=== PATIENT | female | born 1990 | race Caucasian/White ===

== ENCOUNTER 2019-01-18 16:32 | Emergency (ER) | payer MEDICAID ==
--- NOTE | 2019-01-18 18:41 | ED Physician Documentation ---
PD HPI HEENT - Stated complaint Stated Complaint: NECK PX/NO INJ - Chief complaint Chief Complaint: Back Pain - History obtained from History obtained from: Patient - History of Present Illness Timing - onset: How many weeks ago (1) Timing - duration: Weeks (1) Timing - details: Gradual onset, Still present Location: Right ear, Other (noting pain on lateral neck right side for a week. Now noting some pain right ear.) Associated symptoms: No: Fever, Congestion, Cough Similar symptoms before: Has not had sx before Review of Systems Constitutional: denies: Fever, Chills, Myalgias Ears: reports: Ear pain (just for a day) Nose: reports: Congestion. denies: Rhinorrhea / runny nose Throat: denies: Sore throat Respiratory: reports: Cough GI: denies: Nausea, Vomiting Skin: denies: Rash, Lesions PD PAST MEDICAL HISTORY - Past Medical History Past Medical History: No - Present Medications Home Medications: Ambulatory Orders Medication Instructions Recorded Confirmed Cetirizine [ZyrTEC] 10 mg PO DAILY #15 tablet 01/18/19 cephALEXin [Cephalexin] 500 mg PO TID #21 tablet 01/18/19 dexAMETHasone [Decadron] 4 mg PO DAILY #5 tablet 01/18/19 - Allergies Allergies/Adverse Reactions: Allergies Allergy/AdvReac Type Severity Reaction Status Date / Time No Known Drug Allergies Allergy Verified 01/18/19 16:42 - Social History Does the pt smoke?: No Smoking Status: Never smoker PD ED PE NORMAL - Vitals Vital signs reviewed: Yes - General General: Alert and oriented X 3, No acute distress, Well developed/nourished - HEENT HEENT: Pharynx benign. No: Ears normal (left is good. right ear showing redness and fluid behing TM. Canal is okay.) - Neck Neck: Supple, no meningeal sign, Other (right lateral cervical 1 cm adenopathy, mod tender.) - Cardiac Cardiac: RRR, No murmur - Respiratory Respiratory: Clear bilaterally - Derm Derm: Normal color, Warm and dry, No rash Results - Vitals Vitals: Oxygen O2 Source Room air PD MEDICAL DECISION MAKING - ED course Complexity details: considered differential, d/w patient Departure - Departure Disposition: 01 Home, Self Care Clinical Impression: Cervical adenopathy Otitis media Qualifiers: Otitis media type: suppurative Chronicity: acute Laterality: right Recurrence: non-recurrent Spontaneous tympanic membrane rupture: without spontaneous rupture Qualified Code(s): H66.001 - Acute suppurative otitis media without spontaneous rupture of ear drum, right ear Condition: Stable Record reviewed to determine appropriate education?: Yes Instructions: ED Otitis Media Acute Adult Follow-Up: AARON SPENCER MD [Primary Care Provider] - Prescriptions: cephALEXin [Cephalexin] 500 mg PO TID #21 tablet Cetirizine [ZyrTEC] 10 mg PO DAILY #15 tablet dexAMETHasone [Decadron] 4 mg PO DAILY #5 tablet Comments: It does look like an ear infection. The neck pain is appears to be from some small lymph nodes related to the infection. He is the cephalexin antibiotic as directed for a week. Decadron steroid for inflammation daily as directed. Cetirizine antihistamine daily for the next week or 2 to decrease fluid in the middle ear and sinus. Add Tylenol if needed for pains or fevers. Recheck if not improving well over the next few days. Discharge Date/Time: 01/18/19 19:07
[2019-01-18 18:42] VITALS: BP 128/88
[2019-01-18] MEDS ORDERED: DEXAMETHASONE 10 MG/ML VIAL PO STA (18:54)
[2019-01-18] MEDS ORDERED: CHERRY SYRUP 10 ML UDC PO ONE (18:54)
[2019-01-18] MEDS ORDERED: ACETAMINOPHEN 325 MG TABLET PO STA (18:54)
[2019-01-18] MEDS ORDERED: CETIRIZINE 10 MG TABLET PO STA (18:54)
[2019-01-18] MEDS ORDERED: cephALEXin 250 MG CAPSULE PO STA (18:54)
== END 2019-01-18 19:07 | disposition home or self-care (01) ==
LOC: ED 16:32
DX: H66.001 Acute suppurative otitis media without spontaneous rupture of ear drum, right ear (principal); R59.0 Localized enlarged lymph nodes
CPT/HCPCS: 99283; A9270